=== PATIENT | male | born 1980 | race Caucasian/White ===

== ENCOUNTER 2020-09-21 11:52 | Outpatient (REF) | payer MEDICAID, SELFPAY ==
[2020-09-21 14:22] LABS: SARS COV2 PCR INHOUSE NEGATIVE (Negative)
== END 2020-09-21 11:53 | disposition home or self-care (01) ==
LOC: HO.LAB 11:52
PROVIDERS: Visit Provider Internal Medicine
DX: Z20.822 Contact with and (suspected) exposure to COVID-19 (principal)
CPT/HCPCS: C9803; U0003

== ENCOUNTER 2020-10-20 13:00 | Outpatient (REF) | payer MEDICAID, SELFPAY ==
[2020-10-20 13:40] LABS: COVID-19 Test Negative (Negative)
== END 2020-10-20 13:01 | disposition home or self-care (01) ==
LOC: HO.LAB 13:00
PROVIDERS: Visit Provider Internal Medicine
DX: Z20.822 Contact with and (suspected) exposure to COVID-19 (principal)
CPT/HCPCS: 36415; 87635; C9803

== ENCOUNTER 2022-11-24 18:56 | Emergency (ER) | payer MEDICAID, SELFPAY ==
[2022-11-24 19:21] VITALS: BP 146/94; PULSE 116; RESP 20; TEMP 37.2; O2SAT 98; BMI 39.1
[2022-11-24 19:25] VITALS: RESP 20
--- NOTE | 2022-11-24 21:35 | ED.EAR ---
HPI - Ear Problem General Chief complaint: Ear Problems Stated complaint: Earache Time Seen by Provider: 11/24/22 21:24 Source: patient and family Mode of arrival: ambulatory Limitations: no limitations History of Present Illness HPI Narrative: 42-year-old male came in for evaluation of bilateral ears pain started 2 days ago started in the left ear than now it is both ear pain is constant, no fever, no chills, no decrease hearing, no tinnitus, no recent swimming in public pool, no sick contacts. Related Data Previous Rx's Medication Instructions Recorded azithromycin 500 mg tablet 500 mg PO DAILY 5 days #5 tabs 11/24/22 (Zithromax) Allergies Allergy/AdvReac Type Severity Reaction Status Date / Time penicillin V Allergy Unknown oral Verified 11/24/22 19:24 swelling, SOB Penicillins [PENICILLINS] Allergy Unknown THROAT Unverified 03/09/20 16:34 CLOSES UP Review of Systems Review of Systems: All other systems are reviewed and are negative Constitutional: Reports as per HPI and Reports no additional constitutional complaints Eyes: Reports as per HPI and Reports no additional eye complaints Reports system reviewed and no additional complaints, except as documented Cardiovascular: Reports as per HPI and Reports no additional cardiovascular complaints Respiratory: Reports as per HPI and Reports no additional respiratory complaints Gastrointestinal: Reports as per HPI and Reports no additional gastrointestinal complaints Genitourinary: Reports no additional female genitourinary complaints Musculoskeletal: Reports no additional musculoskeletal complaints Skin/Breast: Reports system reviewed and no additional complaints, except as docu Psychiatric: Reports no additional psychiatric complaints Endocrine: Reports no additional endocrine complaints Hematologic/Lymphatic: Reports no additional hematologic/lymphatic complaints Allergic/Immunologic: Reports no additional allergic/immunologic complaints Reports system reviewed and no additional complaints, except as documented and Reports Abnormal speech present [facility] Social History Social History Smoked in Last 30 Days: No Use of substances other than those prescribed or required for medical reasons: No Advance Directives: No Advance Directives Information Provided: No Physical Exam Vital Signs: Vital Signs: Last Vital Signs Temp 98.9 F 11/24/22 19:21 Pulse 116 H 11/24/22 19:21 Resp 20 11/24/22 19:25 BP 146/94 H 11/24/22 19:21 Pulse Ox 98 11/24/22 19:21 O2 Del Method Room Air 11/24/22 19:21 BMI result Body Mass Index 39.1 Vital signs have been reviewed as appeared to be correct. Blood pressure normal. Heart rate elevated. Respiration rate normal. Temperature normal. Oxygen saturation normal. Appearance: Alert. Oriented X3. No acute distress. Head: Normal external exam. Normocephalic. Atraumatic. No Rhodes signs noted. No raccoon eyes noted Eyes: PERRLA. EOMI. Conjunctiva and sclera normal. Eyelids normal. ENT: Bilateral TMs erythema. Pharynx normal. Uvula midline. Moist mucous membranes. No trismus noted. No drooling noted. No muffled voice noted. Neck: Normal inspection. Neck supple. FROM. No adenopathy. Thyroid Normal. No meningeal signs. No neck mass noted. CVS: Normal heart rate and rhythm. Heart sound normal. No murmurs noted. Pulses normal throughout. Respiratory: No respiratory distress. Painless inspiration. Breath sounds normal. No wheezes/rales/rhonchi noted. Chest nontender. No accessory muscle usage noted or decreased air movement noted. Abdomen: Soft and nontender. Bowel sounds normal in all 4 quadrants. No distention noted. No organomegaly noted. No visible injury noted. Back: No CVA tenderness. Full range of motion noted. Skin: Skin warm and dry. Normal skin color. Normal skin turgor. No rashes/lesions/lacerations noted. Extremities: No lower extremity edema. Extremities exhibit normal range of motion. Extremities nontender. Neuro: Oriented X 3. Cranial nerve exam: II-XII are grossly intact No motor deficit. No sensory deficit. Reflexes normal. Course Course Course Narrative: Otitis media patient is allergic to penicillins will start on azithromycin for 5 days. Medications Administered Discontinued Medications Generic Name Dose Route Start Last Admin Trade Name Freq PRN Reason Stop Dose Admin Azithromycin 500 mg 11/24/22 21:33 11/24/22 21:37 Azithromycin 500 Mg Tablet PO 11/24/22 21:34 500 mg ONCE ONE Administration Prednisone 40 mg 11/24/22 21:33 11/24/22 21:37 Prednisone 20 Mg Tablet PO 11/24/22 21:34 40 mg ONCE ONE Administration Medical Decision Making Differential Diagnosis Differential Diagnoses: The differential diagnosis associated with the presentation includes (Otitis media, TMJ, otitis externa) Discharge Plan Discharge Clinical Impression: Otitis media Patient Disposition: Home, Self-Care Prescriptions: New azithromycin [Zithromax] 500 mg tablet 500 mg PO DAILY 5 Days Qty: 5 0RF Interventions: ED Discharge Assessment Last Done: 11/24/22 22:24 Discharge Date/Time: 11/24/22 22:25
[2022-11-24] MEDS: Azithromycin 500 MG TABLET PO (21:37)
[2022-11-24] MEDS: predniSONE 20 MG TABLET 40 MG PO (21:37)
--- NOTE | 2022-11-24 21:39 | PC.NURSE ---
Patient medicated with prednisone and zithromycin per AUG.
== END 2022-11-24 22:25 | disposition home or self-care (01) ==
PROVIDERS: Emergency Provider Emergency Medicine
DX: H92.02 Otalgia, left ear (principal); H66.92 Otitis media, unspecified, left ear
CPT/HCPCS: 99283; 99284

== ENCOUNTER 2023-01-15 09:50 | Outpatient (REF) | payer MEDICAID, SELFPAY ==
[2023-01-15 11:28] LABS: MANUAL DIFF FLAG NO
[2023-01-15 11:35] LABS: Basophils Percent Auto 0.5 % (0-2); Eosinophils Absolute Auto 0.1 X10*3/uL (0.0-0.4); Eosinophils Percent Auto 0.9 % (0-4); Imm Gran Abs Auto 0.03 X10*3/uL (0.00-0.03); Imm Gran Pct Auto 0.4 % (0.0-0.4); Lymphocytes Absolute Auto 2.5 X10*3/uL (1.2-4.9); Lymphocytes Percent Auto 32.3 % (20-40); Mean Corpuscular HGB Conc 32.6 g/dl (31.0-36.0); Mean Corpuscular Hemoglobin 28.3 pg (27.0-33.0); Mean Platelet Volume 9.8 fL (9.4-12.4); Monocytes Absolute Auto 0.6 X10*3/uL (0.1-1.2); Monocytes Percent Auto 8.3 % (2-11); Neutrophils Absolute Auto 4.5 x10*3/uL (2.0-8.3); Neutrophils Percent Auto 57.6 % (45-73); Platelet Count 347 X10*3/uL (160-400); Red Blood Count 4.94 X10*6/uL (4.60-5.80); Red Cell Distribution Width 13.4 % (11.0-16.0); White Blood Count 7.8 X10*3/uL (4.8-10.8)
[2023-01-15 12:07] LABS: Alanine Aminotransferase 19 U/L (0-40); Albumin Level 4.1 g/dL (3.5-5.0); Alkaline Phosphatase 101 U/L (39-117); Anion Gap 13 (12-20); Aspartate Amino Transferase 15 U/L (5-37); Bilirubin Total 0.4 mg/dL (0.0-1.0); Blood Urea Nitrogen 14 mg/dL (9-16); Calcium 9.7 mg/dL (8.4-10.2); Carbon Dioxide 28 mmol/L (22-29); Chloride 104 mmol/L (96-108); Cholesterol 180 mg/dL; Estimated Glomerular Filt Rate > 60; Glucose Random 85 mg/dL (60-115); HDL Cholesterol 43 mg/dL; LDL Cholesterol Calculated 88 mg/dl; Potassium 4.1 mmol/L (3.3-5.1); Sodium 141 mmol/L (135-145); Total Protein 7.8 g/dL (6.5-8.0); Triglycerides 245 mg/dL
== END 2023-01-15 09:51 | disposition home or self-care (01) ==
LOC: HO.CHCLDS 09:50
PROVIDERS: Visit Provider Nurse Practitioner Family
DX: Z00.00 Encounter for general adult medical examination without abnormal findings (principal); I10 Essential (primary) hypertension
CPT/HCPCS: 36415; 80053; 80061; 85025

== ENCOUNTER 2024-12-20 14:57 | Outpatient (REF) | payer MEDICAID, SELFPAY ==
--- OUTSIDE RECORDS SUMMARY | 2024-12-20 15:26 | XMS_ITS | Encounter Summary ---
Author Organization [employer] Address [address] [place] [address] Care Team Providers Care Epidemiology Investigator Name Role Phone Yen Arango NP Primary Care Provider [phone] Reason for Visit * Reason Onset Date Comments Med Refill 12/19/2024 Encounter Details Date Type Department Care Team ([facility] st Contact Info) Description 12/19/2024 Refill [facility] [address] [place] [address] Yen Arango NP [address] [place] [address] Social History Tobacco Use Types Packs/Day Years Used Date Smoking Tobacco: Former Smokeless Tobacco: Never Comments:Smoked for approxim ately 8 years, quit 17 years ago Alcohol Use Standard Drinks/Week Comments Not Currently 0 (1 standard drink = 0.6 oz pur e alcohol) last drink 17 years ago Depression Answer Date Recorded Patient Health Questionnaire-9 Score 10 12/20/2024 Patient Health Questionnaire-9 Score 10 12/20/2024 Last PHQ-9: Questionnaire Data Not on file 0 12/20/2024 Housing Stability Answer Date Recorded What is your housing situation today? I have julienne ramses 12/20/[address] you li ve. Do you have problems with any of the following? Pests such as bugs, ants, or mice 12/20/2024 Food Insecurity Answer Date Recorded Within the past 12 months, y ou worried that your food would run out before you got money to buy more: Never True 12/20/2024 Within the past 12 months,th e food you bought just didn't last and you didn't have enough money to get more: Never True Transportation Answer Date Recorded In the past 12 months, has l ack of transportation kept you from medical appts, meetings, work or from getting things needed for daily living? No 12/20/2024 Utilities Answer Date Recorded In the past 12 months, has t he electric, gas, oil or water company threatened to shut off services in your home? No 12/20/2024 Depression Answer Date Recorded Patient Health Questionnaire-2 Score 3 12/20/2024 Internet Access Answer Date Recorded Internet Access Q1 Yes 12/20/2024 Internet Access Q2 Not on file 12/20/2024 Sex and Gender Information Value Date Recorded Sex Assigned at Male 04/22/2022 10:14 AM EDT Legal Sex Male 10:14 AM EDT Gender Identity Male 04/22/2022 10:14 AM EDT Sexual Orientation Straight 04/22/2022 10 :14 AM EDT documented as of this encounter Plan of Treatment Upcoming Encounters Date Type Department Care Team (Late st Contact Info) Description 02/11/2025 3:15 PM EDT Office Visit [facility] [address] [place] [address] Yen Arango NP [address] [place] [address] 04/14/2025 1:00 PM EDT Office Visit [facility] [address] [place] [address] Ada Sargent documented as of this encounter Visit Diagnoses Not on filedocumented in this encounter Additional Health Concerns Assessment Noted Time PHQ-9 Depression Total Score: 10 024 9:08 AM EST documented as of this encounter Care Teams Epidemiology Investigator Relationship Specialty Start Date End Date Yen Arango NP [address] [place] [address] PCP - General Family Medicine 09/20/24 documented as of this encounter
[2024-12-20 16:18] LABS: Estimated Average Glucose 123 mg/dL; Hemoglobin A1c % 5.9 % (<6.0)
[2024-12-20 16:30] LABS: Alanine Aminotransferase 23 U/L (0-40); Albumin Level 4.4 g/dL (3.5-5.0); Alkaline Phosphatase 110 U/L (39-117); Anion Gap 13 (12-20); Aspartate Amino Transferase 18 U/L (5-37); Bilirubin Total 0.3 mg/dL (0.0-1.0); Blood Urea Nitrogen 13 mg/dL (9-16); Calcium 9.1 mg/dL (8.4-10.2); Carbon Dioxide 25 mmol/L (22-29); Chloride 105 mmol/L (96-108); Cholesterol 176 mg/dL (<200); Estimated Glomerular Filt Rate > 60; Glucose Random 94 mg/dL (60-115); HDL Cholesterol 39 mg/dL (>40); LDL Cholesterol Calculated 96 mg/dL (<100); Sodium 139 mmol/L (135-145); Total Protein 7.8 g/dL (6.5-8.0); Triglycerides 205 mg/dL (<150)
[2024-12-20 16:46] LABS: TSH reflex Free T4 2.19 uIU/mL (0.32-4.0)
== END 2024-12-20 14:58 | disposition home or self-care (01) ==
LOC: HO.HHCL 14:57
PROVIDERS: PCP Nurse Practitioner Family; Visit Provider Nurse Practitioner Family
DX: E66.9 Obesity, unspecified (principal); N62 Hypertrophy of breast
CPT/HCPCS: 36415; 80053; 80061; 83036; 84443